=== PATIENT | female | born 1935 | race Caucasian/White ===

== ENCOUNTER 2023-09-04 07:48 | Inpatient (IN) | payer MEDICARE, SELFPAY ==
[2023-09-02 18:06] VITALS: BP 128/99; BMI 18.0
[2023-09-02 18:09] VITALS: BP 128/99
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
[2023-09-02 18:43] LABS: % Basophils 0.3 % (0-2); % Immature Granulocytes 0.3 % (0-0.5); % Lymphocytes 6.2 % (20.5-51.1); % Monocytes 6.9 % (1.7-9.3); % Neutrophils 86.3 % (42.2-75.2); Absolute Lymphocytes 0.8 10^3/uL (1.2-3.4); Absolute Monocytes 0.9 10^3/uL (0.1-0.6); Absolute Neutrophils 11.2 10^3/uL (1.4-6.5); Hematocrit 45.1 % (37.0-47.0); Hemoglobin 15.5 g/dL (12.0-16.0); Mean Corp Hgb Conc. 34.4 g/dL (33.0-37.0); Mean Corpuscular Hgb 30.9 pg (27.0-31.0); Mean Platelet Volume 10.4 fL (7.4-10.4); Nucleated Red Blood Cells % 0 %; Platelet Count 270 10^3/uL (130-400); Red Blood Cell Count 5.01 10^6/uL (4.20-5.40); Red Cell Dist. Width 13.3 % (11.5-14.5); White Blood Cell Count 12.9 10^3/uL (4.8-10.8)
--- NOTE | 2023-09-02 18:44 | PHANOTE ---
Addendum entered by Bernadine Raman 09/02/23 19:49:
Pt's family arrived with all of pt's medication bottles. Went over medications with pt's daughter and discussed last doses.
Original Note:
Med Rec Note:
Per EMS pt lives with daughter, and daughter doesn't know what medications pt is on. Home med list compiled from Dr Liriano and ECW.
[2023-09-02 19:05] LABS: ALT (SGPT) 25 U/L (0-35); AST (SGOT) 67 U/L (14-36); Albumin 4.9 g/dl (3.5-5.0); Alkaline Phosphatase 103 U/L (38-126); Blood Urea Nitrogen 23 mg/dl (7-17); Calcium 9.9 mg/dl (8.4-10.2); Carbon Dioxide 30 mmol/L (22-30); Chloride 100 mmol/L (98-107); Creatine Phosphokinase 1340 U/L (30-135); Estimated Creatinine Clearance 49 ml/min; Glucose 99 mg/dl (70-99); Potassium 4.3 mmol/L (3.5-5.1); Sodium 138 mmol/L (135-145); Total Bilirubin 1.3 mg/dl (0.2-1.3); Total Protein 8.2 g/dl (6.3-8.2); eGFR > 60.00
[2023-09-02] MEDS: NSS 1000 IV (19:35)
[2023-09-02 19:36] VITALS: BP 155/89
[2023-09-02 20:00] VITALS: BP 158/83
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
[2023-09-02 21:00] VITALS: BP 139/86
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
[2023-09-02 23:38] VITALS: BP 148/77
[2023-09-03] VITALS (9 sets, daily range): BP systolic 101–164; BP diastolic 70–116; BMI 18.2
[2023-09-03] MEDS: NSS 1000 IV ×2 (00:13→16:58)
[2023-09-03] MEDS: DURAGESIC 25 MCG/HR PATCH 1 PATCH TRANSDERM (00:19)
[2023-09-03] MEDS: ATIVAN 0.5 MG IV (00:21)
[2023-09-03] MEDS: NSS (PRESERVATIVE FREE) 0.25 ML IV (00:22)
[2023-09-03] MEDS: COLACE PO (00:22)
[2023-09-03] MEDS: TYLENOL PO ×5 (00:22→17:03)
[2023-09-03] MEDS: LIPITOR PO (00:22)
[2023-09-03] MEDS: SEROQUEL PO (00:22)
[2023-09-03] MEDS: ROXICODONE PO ×2 (00:23→07:25)
[2023-09-03 06:56] LABS: Hematocrit 39.3 % (37.0-47.0); Hemoglobin 13.3 g/dL (12.0-16.0); Mean Corp Hgb Conc. 33.8 g/dL (33.0-37.0); Mean Corpuscular Hgb 30.4 pg (27.0-31.0); Mean Corpuscular Volume 89.7 fL (81.0-99.0); Mean Platelet Volume 10.1 fL (7.4-10.4); Platelet Count 266 10^3/uL (130-400); Red Blood Cell Count 4.38 10^6/uL (4.20-5.40); Red Cell Dist. Width 13.2 % (11.5-14.5)
[2023-09-03 07:21] LABS: ALT (SGPT) 24 U/L (0-35); AST (SGOT) 58 U/L (14-36); Alkaline Phosphatase 96 U/L (38-126); Blood Urea Nitrogen 22 mg/dl (7-17); Calcium 9.1 mg/dl (8.4-10.2); Carbon Dioxide 29 mmol/L (22-30); Chloride 104 mmol/L (98-107); Direct Bilirubin 0.3 mg/dl (0.0-0.4); Estimated Creatinine Clearance 49 ml/min; Glucose 99 mg/dl (70-99); Potassium 3.5 mmol/L (3.5-5.1); Sodium 138 mmol/L (135-145); Total Bilirubin 0.9 mg/dl (0.2-1.3); Total CK 1295 U/L (30-135); Total Protein 6.7 g/dl (6.3-8.2); eGFR > 60.00
[2023-09-03] MEDS: SYNTHROID PO (07:25)
[2023-09-03 09:03] LABS: CKMB 9.9 ng/ml (0.0-2.4)
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
[2023-09-03] MEDS: NAMENDA PO (10:37)
[2023-09-03] MEDS: COZAAR PO (10:37)
[2023-09-03] MEDS: EXELON PO (10:37)
[2023-09-03] MEDS: WELLBUTRIN XL (24 hour extended release) PO (10:38)
[2023-09-03] MEDS: VITAMIN D3 (cholecalciferol) PO (10:38)
[2023-09-03] MEDS: ROXICODONE 10 MG PO ×3 (13:13→22:50)
[2023-09-03] MEDS: TYLENOL 325 MG PO ×3 (13:13→22:50)
[2023-09-03] MEDS: NSS IV (13:42)
--- NOTE | 2023-09-03 14:14 | PTCARENOTE ---
Pt received in bed @ 0700. Drowsy but responded to verbal stimuli. Unable to follow commands. Uncooperative with PO medication administration or attempts to feed breakfast. SaO2 95% on room air. Lungs diminished. Vital signs stable. Incontinent of
urine. Pt cleaned and purewick placed.
--- NOTE | 2023-09-03 14:16 | PTCARENOTE ---
Pt remains only oriented to self. Now agreeable to scheduled medication and lunch. Able to follow simple commands. Awaiting urine for sample.
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
[2023-09-03] MEDS: LOVENOX 40 MG SC (17:03)
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
[2023-09-03] MEDS: COLACE 300 MG PO (21:27)
[2023-09-03] MEDS: TYLENOL 500 MG PO (21:27)
[2023-09-03] MEDS: OSCAL 500 + D 500 MG PO (21:27)
[2023-09-03] MEDS: MELATONIN 10 MG PO (21:27)
[2023-09-03] MEDS: NAMENDA 10 MG PO (21:27)
[2023-09-03] MEDS: LIPITOR 10 MG PO (21:27)
[2023-09-03] MEDS: SEROQUEL 25 MG PO (21:28)
[2023-09-03] MEDS: EXELON 1.5 MG PO (22:50)
[2023-09-04 00:39] VITALS: BP 135/71
[2023-09-04] MEDS: NSS 1000 IV ×3 (01:11→19:55)
[2023-09-04 02:03] LABS: Urine Albumin Trace (Neg - Trace); Urine Bilirubin Negative (Negative); Urine Color Yellow; Urine Glucose Negative (Negative); Urine Ketone Trace (Negative); Urine Leukocyte 2+ (Negative); Urine Nitrite Negative (Negative); Urine Occult Blood 3+ (Negative); Urine Specific Gravity 1.015 (<1.030); Urine Urobilinogen Negative (Neg - 1+)
[2023-09-04 02:09] LABS: Urine Character Cloudy (Clear)
[2023-09-04 03:05] LABS: Urine Bacteria Many (Negative); Urine Squamous Cell >30 /LPF (Few); Urine White Cell >100 /HPF (0-5)
[2023-09-04] MEDS: SYNTHROID PO (06:07)
[2023-09-04] MEDS: TYLENOL PO ×2 (06:07→17:04)
[2023-09-04] MEDS: ROXICODONE PO (06:08)
[2023-09-04 07:32] VITALS: BP 187/86
[2023-09-04 08:12] LABS: Hematocrit 40.1 % (37.0-47.0); Hemoglobin 13.6 g/dL (12.0-16.0); Mean Corp Hgb Conc. 33.9 g/dL (33.0-37.0); Mean Corpuscular Hgb 31.2 pg (27.0-31.0); Mean Platelet Volume 9.7 fL (7.4-10.4); Platelet Count 229 10^3/uL (130-400); Red Blood Cell Count 4.36 10^6/uL (4.20-5.40); White Blood Cell Count 5.6 10^3/uL (4.8-10.8)
[2023-09-04 08:52] LABS: ALT (SGPT) 28 U/L (0-35); AST (SGOT) 49 U/L (14-36); Albumin 3.7 g/dl (3.5-5.0); Alkaline Phosphatase 87 U/L (38-126); Blood Urea Nitrogen 13 mg/dl (7-17); Carbon Dioxide 31 mmol/L (22-30); Chloride 106 mmol/L (98-107); Estimated Creatinine Clearance 49 ml/min; Glucose 91 mg/dl (70-99); Potassium 3.2 mmol/L (3.5-5.1); Sodium 139 mmol/L (135-145); Total Bilirubin 0.6 mg/dl (0.2-1.3); Total CK 670 U/L (30-135); Total Protein 6.3 g/dl (6.3-8.2); eGFR > 60.00
[2023-09-04] MEDS: STERILE WATER FOR INJECTION 10 ML IV (09:02)
[2023-09-04] MEDS: ROCEPHIN 1000 MG IV (09:02)
[2023-09-04] MEDS: VITAMIN D3 (cholecalciferol) 50 MCG PO (09:03)
[2023-09-04] MEDS: EXELON 1.5 MG PO ×2 (09:03→19:55)
[2023-09-04] MEDS: NAMENDA 10 MG PO ×2 (09:03→19:55)
[2023-09-04] MEDS: WELLBUTRIN XL (24 hour extended release) 150 MG PO (09:03)
[2023-09-04] MEDS: COZAAR 50 MG PO (09:03)
[2023-09-04] MEDS: TYLENOL 500 MG PO ×2 (09:03→22:10)
[2023-09-04 10:11] LABS: CKMB 6.4 ng/ml (0.0-2.4)
--- NOTE | 2023-09-04 10:37 | PTOTSP ---
ST Acute Care Evaluation
Pt presents with oropharyngeal and esophageal phases that appear WFL for all PO intake. No skilled dysphagia services warranted at this time.
Briefly, pt presents pleasantly confused with moderately-severe cognitive linguistic dysfunction - full assessment NOT completed. Pt is likely at baseline cognitive function, and thus cognitive linguistic evaluation would not be warranted. However,
if pt's family (i.e., daughter) communicates that pt is more altered than normal, please re-consult [employer] services for a cognitive linguistic evaluation. Thank you.
[2023-09-04 11:15] VITALS: BP 142/72
[2023-09-04] MEDS: TYLENOL 325 MG PO ×3 (11:53→23:21)
[2023-09-04] MEDS: ROXICODONE 10 MG PO ×3 (11:53→23:20)
[2023-09-04 15:09] VITALS: BP 156/85
--- NOTE | 2023-09-04 15:25 | W.PN.HOSP.TC ---
Today's Communication/Plan
-
Improving with IV fluids
Speech therapy
Continue antibiotics
Assessment / Plan
Assessment / Plan
Physical Exam
Gen: Elderly appearing. Frail. No acute distress.
HEENT: Not in acute distress
Cardio: +S1/S2, No M/R/G
Pulm: CTA b/l, no w/r/r
GI: Soft/NT/ND, +BS
Skin: Warm/Dry. +mild erythema to left greater troch and b/l knees. Chronic left anterior tibial ecchymosis.
Neuro/MSK: AAOx1 (baseline). MSK 4/5 throughout. Sensation intact throughout. No focal deficits.
Psych: Pleasantly Demented
A/P
Traumatic Rhabdomyolysis
- CPK 1340 --> now improving with IV fluids.
- Renal function has improved.
- Serial exams of left greater troch/right knee, no evidence of infection/compartment at this time
- S/P 1LNS in ER. Continue IVF and trend CPK.
S/P Fall
- Unclear etiology for fall. Suspect physical deconditioning/mechanical etiology.
- CT brain (-).
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
- XR Right knee: no acute fx/dislocation.
- UA suggests UTI: continue Rocephin
- Check orthostatics, Continue IVF
- Consult PT and CM
Leukocytosis
- WBC 12.9K. Afebrile.
- Previous admission 04/2022 for klebsiella UTI.
- Follow urine and blood cultures
- Continue Rocephin
- No pulmonary compaints. CXR with no acute process.
Transaminitis
- Mild transaminitis consistent with rhabdo. IVF and trend.
HTN/HLD
- BP stable. Continue home Losartan.
Hypothyroidism - Continue home synthroid
Dementia/Anxiety/Depression/Chronic Pain
- Continue home wellbutrin, seroquel, rivastigmine, fentanyl patch, and percocet.
- [place]-PD[place] reviewed. Outpatient follow up with Pain management Dr. Wyatt
Diet - Regular Diet
DVT PPx - Lovenox
Code Status - DNR/DNI
On September 03, 2023, I tried calling patient's daughter Yanni Lynch, but she did not answer the phone.
Anticipated Discharge: 24 - 48 hours
Subjective/Interval History
-
Date of Service: September 04, 2023
Patient was seen and examined. She was more alert and interactive today, denied any complaints except for very mild abdominal discomfort which went away.
Objective Data
-
Labs:
Laboratory Results
09/04/23
07:57
WBC 5.6
Hgb 13.6
Hct 40.1
Plt Count 229
Sodium 139
Potassium 3.2 L
Chloride 106
Carbon Dioxide 31 H
BUN 13
Creatinine 0.6
Glucose 91
Calcium 9.0
Total Bilirubin 0.6
AST 49 H
ALT 28
Alkaline Phosphatase 87
Vital Signs:
Vital Signs
Temp Pulse Resp BP Pulse Ox
98.2 F 79 18 156/85 97
09/04/23 15:09 09/04/23 15:09 09/04/23 15:09 09/04/23 15:09 09/04/23 15:09
I&O
09/03/23 09/04/23 09/05/23
06:59 06:59 06:59
Intake Total 1740 / 1740
Output Total 100 / 100
Balance 1640 / 1640
[2023-09-04 15:38] VITALS: BMI 18.2
[2023-09-04 16:10] LABS: Lactic Acid 1.3 mmol/L (0.7-2.0)
[2023-09-04 16:36] VITALS: BP 121/81; BP 125/87; PULSE 109; PULSE 89
[2023-09-04] MEDS: KCL 40 MEQ PO (17:06)
[2023-09-04] MEDS: LOVENOX 40 MG SC (17:06)
[2023-09-04] MEDS: COLACE 300 MG PO (22:10)
[2023-09-04] MEDS: OSCAL 500 + D 500 MG PO (22:10)
[2023-09-04] MEDS: DURAGESIC 25 MCG/HR PATCH 1 PATCH TRANSDERM (22:10)
[2023-09-04] MEDS: SEROQUEL 25 MG PO (22:10)
[2023-09-04] MEDS: LIPITOR 10 MG PO (22:10)
[2023-09-04] MEDS: MELATONIN 10 MG PO (22:10)
--- NOTE | 2023-09-04 22:46 | PTCARENOTE ---
Fentanyl patch removed from L scapula and wasted. Witness by Thelma Page RN.
[2023-09-04 23:30] VITALS: BP 179/94
[2023-09-05] MEDS: NSS 1000 IV ×2 (05:47→17:26)
[2023-09-05] MEDS: SYNTHROID 50 MCG PO (05:52)
[2023-09-05] MEDS: TYLENOL 325 MG PO ×4 (05:52→23:24)
[2023-09-05] MEDS: ROXICODONE 10 MG PO ×4 (05:52→23:24)
[2023-09-05 06:51] LABS: Hematocrit 37.4 % (37.0-47.0); Hemoglobin 12.7 g/dL (12.0-16.0); Mean Corpuscular Hgb 31.1 pg (27.0-31.0); Mean Corpuscular Volume 91.4 fL (81.0-99.0); Mean Platelet Volume 10.5 fL (7.4-10.4); Platelet Count 241 10^3/uL (130-400); Red Blood Cell Count 4.09 10^6/uL (4.20-5.40); White Blood Cell Count 5.2 10^3/uL (4.8-10.8)
[2023-09-05 07:26] LABS: ALT (SGPT) 26 U/L (0-35); AST (SGOT) 38 U/L (14-36); Albumin 3.7 g/dl (3.5-5.0); Alkaline Phosphatase 74 U/L (38-126); Blood Urea Nitrogen 10 mg/dl (7-17); Calcium 9.3 mg/dl (8.4-10.2); Carbon Dioxide 27 mmol/L (22-30); Chloride 106 mmol/L (98-107); Estimated Creatinine Clearance 49 ml/min; Glucose 117 mg/dl (70-99); Potassium 3.8 mmol/L (3.5-5.1); Sodium 137 mmol/L (135-145); Total Bilirubin 0.5 mg/dl (0.2-1.3); Total CK 401 U/L (30-135); Total Protein 6.2 g/dl (6.3-8.2); eGFR > 60.00
[2023-09-05] MEDS: WELLBUTRIN XL (24 hour extended release) 150 MG PO (07:36)
[2023-09-05] MEDS: STERILE WATER FOR INJECTION 10 ML IV (07:36)
[2023-09-05] MEDS: ROCEPHIN 1000 MG IV (07:36)
[2023-09-05] MEDS: EXELON 1.5 MG PO ×2 (07:36→19:38)
[2023-09-05] MEDS: COZAAR 50 MG PO (07:36)
[2023-09-05] MEDS: NAMENDA 10 MG PO ×2 (07:36→19:38)
[2023-09-05] MEDS: VITAMIN D3 (cholecalciferol) 50 MCG PO (07:36)
[2023-09-05] MEDS: TYLENOL 500 MG PO ×2 (07:36→21:13)
[2023-09-05 07:52] VITALS: BP 148/76
[2023-09-05 08:00] LABS: CKMB 4.3 ng/ml (0.0-2.4)
[2023-09-05 11:25] VITALS: BP 150/95
--- NOTE | 2023-09-05 11:44 | PN.CDI ---
CDI
- -
CDI:
Physician Documentation Request
Admit Date: 09/04/23 07:48
Dear Doctor Jen,
Clinical Indicators:
Height: 5 ft 4 in
Weight: 106 lbs 1.6 oz
BMI: 18.2
09/03 note, 'underweight'
If possible, please provide an associated diagnosis related to the abnormal BMI (< or = to 19), such as:
Underweight
BMI is not significant
Other, please specify
Use of terms such as suspected, likely, concern for, or probable (associated with a specific diagnosis that is being evaluated, monitored, or treated as if it exists) are acceptable and can be coded in the inpatient setting, when documented at the
time of discharge.
Thank you,
ASH Fonseca RN
CDI Specialist
available via tiger text
Please use your independent medical judgment in providing your response.
--- NOTE | 2023-09-05 11:48 | PN.CDI ---
CDI
- -
CDI:
Physician Documentation Request
Admit Date: 09/04/23 07:48
Dear Doctor Jen,
Clinical Indicators:
Patient admitted with traumatic rhabdomyolysis.
KCl 40 meq po x 1.
Potassium level:
09/04/23
07:57
Potassium 3.2 L
Based on the above, could you clarify in the progress notes, the appropriate diagnosis, if significant, that supports the above abnormalities and additional evaluation, monitoring and/or treatment rendered:
Hypokalemia
Abnormal lab value, clinically insignificant
Other, please specify
Use of terms such as suspected, likely, concern for, or probable (associated with a specific diagnosis that is being evaluated, monitored, or treated as if it exists) are acceptable and can be coded in the inpatient setting, when documented at the
time of discharge.
Thank you,
ASH Fonseca RN
CDI Specialist
available via tiger text
Please use your independent medical judgment in providing your response.
--- NOTE | 2023-09-05 14:43 | CM ---
Addendum entered by RALEIGH Chapman 09/05/23 15:22:
Referrals faxed
Original Note:
Placed a call to patient's daughter, Yanni, to discuss discharge planning. She stated that she would like for patient to transfer to a SNF and possibly intermediate accountant as she is unable to accommodate the scope of her care. She selected the following
facilities: [facility], [facility], [facility], [facility], [facility], [facility], and [facility].
Will make referrals.
Plan: Case mangement will continue to follow and assist with discharge planning. SNF when stable.
[2023-09-05 16:21] VITALS: BP 166/113
[2023-09-05] MEDS: LOVENOX 40 MG SC (17:11)
--- NOTE | 2023-09-05 17:19 | W.PN.HOSP.TC ---
Today's Communication/Plan
-
Placement pending, spoke extensively to daughter regarding dispo
SNF referrals placed
Echo okay
Continue to monitor on tele
Continue Rocephin, follow cultures
Assessment / Plan
Assessment / Plan
Physical Exam
Gen: Elderly appearing. Frail. No acute distress.
HEENT: Not in acute distress
Cardio: +S1/S2, No M/R/G
Pulm: CTA b/l, no w/r/r
GI: Soft/NT/ND, +BS
Skin: Warm/Dry.
Neuro/MSK: AAOx1 (baseline). MSK 4/5 throughout. Sensation intact throughout. No focal deficits.
Psych: Pleasantly Demented
A/P
Traumatic Rhabdomyolysis
- CPK 1340 --> now improving with IV fluids.
- Renal function has improved.
- Serial exams of left greater troch/right knee, no evidence of infection/compartment at this time
- S/P 1LNS in ER. Continue IVF and trend CPK.
Status Post Fall
- Unclear etiology for fall. Suspect physical deconditioning/mechanical etiology.
- CT brain (-).
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
- XR Right knee: no acute fx/dislocation.
- UA suggests UTI: continue Rocephin
- Check orthostatics, Continue IVF
- Echo stable from previous
- Consult PT and CM
- Monitor on tele
Concern for UTI
-Follow cultures
-Continue Rocephin
Hypokalemia
-Resolved
-Monitor BMP
Leukocytosis
- WBC 12.9K. Afebrile.
- Previous admission 04/2022 for klebsiella UTI.
- Follow urine and blood cultures
- Continue Rocephin
- No pulmonary compaints. CXR with no acute process.
Transaminitis - IMPROVING
- Mild transaminitis consistent with rhabdo. IVF and trend.
HTN/HLD
- BP stable. Continue home Losartan.
Hypothyroidism - Continue home synthroid
Dementia/Anxiety/Depression/Chronic Pain
- Continue home wellbutrin, seroquel, rivastigmine, fentanyl patch, and percocet.
- [place] reviewed. Outpatient follow up with Pain management Dr. Wyatt
Agitation
-Nonviolent bilateral wrist restraints ordered
Underweight
Diet - Regular Diet
DVT PPx - Lovenox
Code Status - DNR/DNI
On September 03, 2023, I tried calling patient's daughter Yanni Lynch, but she did not answer the phone.
On September 05, 2023, I called patient's daughter Yanni Lynch, and extensively spoke to her regarding plan going forward, all questions and concerns were answered to satisfaction.
Total time spent today on chart review, seeing and examining the patient, speaking to the patient's daughter, reviewing orders and on documentation was 55 minutes.
Anticipated Discharge: 24 - 48 hours
Subjective/Interval History
-
Date of Service: September 05, 2023
Objective Data
-
Labs:
Laboratory Results
09/05/23
06:18
WBC 5.2
Hgb 12.7
Hct 37.4
Plt Count 241
Sodium 137
Potassium 3.8
Chloride 106
Carbon Dioxide 27
BUN 10
Creatinine 0.5 L
Glucose 117 H
Calcium 9.3
Total Bilirubin 0.5
AST 38 H
ALT 26
Alkaline Phosphatase 74
Vital Signs:
Vital Signs
Temp Pulse Resp BP Pulse Ox
98.3 F 91 17 166/113 97
09/05/23 16:21 09/05/23 16:21 09/05/23 16:21 09/05/23 16:21 09/05/23 16:21
I&O
09/04/23 09/05/23 09/06/23
06:59 06:59 06:59
Intake Total 1740 / 1740 1480 / 1480 310 / 310
Output Total 100 / 100
Balance 1640 / 1640 1480 / 1480 310 / 310
[2023-09-05] MEDS: NSS IV (17:20)
[2023-09-05] MEDS: TYLENOL PO (17:21)
[2023-09-05 19:17] VITALS: BP 183/92
[2023-09-05] MEDS: LIPITOR 10 MG PO (21:13)
[2023-09-05] MEDS: OSCAL 500 + D 500 MG PO (21:13)
[2023-09-05] MEDS: COLACE 300 MG PO (21:13)
[2023-09-05] MEDS: MELATONIN 10 MG PO (21:13)
[2023-09-05] MEDS: SEROQUEL 25 MG PO (21:13)
[2023-09-05 23:40] VITALS: BP 167/93
[2023-09-06] MEDS: NSS 1000 IV ×2 (01:07→13:04)
[2023-09-06 05:00] VITALS: BP 176/87
[2023-09-06] MEDS: SYNTHROID 50 MCG PO (05:08)
[2023-09-06] MEDS: ROXICODONE 10 MG PO ×4 (05:08→23:08)
[2023-09-06] MEDS: TYLENOL 325 MG PO ×4 (05:08→23:08)
[2023-09-06 07:00] VITALS: BP 149/104
[2023-09-06] MEDS: VITAMIN D3 (cholecalciferol) 50 MCG PO (09:16)
[2023-09-06] MEDS: COZAAR 50 MG PO (09:16)
[2023-09-06] MEDS: NAMENDA 10 MG PO ×2 (09:16→20:28)
[2023-09-06] MEDS: WELLBUTRIN XL (24 hour extended release) 150 MG PO (09:16)
[2023-09-06] MEDS: EXELON 1.5 MG PO ×2 (09:16→20:28)
[2023-09-06] MEDS: ROCEPHIN 1000 MG IV (09:17)
[2023-09-06] MEDS: STERILE WATER FOR INJECTION 10 ML IV (09:17)
[2023-09-06] MEDS: TYLENOL 500 MG PO (09:19)
[2023-09-06 09:22] LABS: Hematocrit 42.1 % (37.0-47.0); Mean Corp Hgb Conc. 33.3 g/dL (33.0-37.0); Mean Corpuscular Hgb 30.9 pg (27.0-31.0); Mean Corpuscular Volume 92.9 fL (81.0-99.0); Mean Platelet Volume 10.7 fL (7.4-10.4); Platelet Count 242 10^3/uL (130-400); Red Blood Cell Count 4.53 10^6/uL (4.20-5.40); Red Cell Dist. Width 13.2 % (11.5-14.5); White Blood Cell Count 4.7 10^3/uL (4.8-10.8)
[2023-09-06 10:49] LABS: ALT (SGPT) 28 U/L (0-35); AST (SGOT) 40 U/L (14-36); Albumin 4.1 g/dl (3.5-5.0); Alkaline Phosphatase 68 U/L (38-126); Blood Urea Nitrogen 9 mg/dl (7-17); Calcium 9.9 mg/dl (8.4-10.2); Carbon Dioxide 28 mmol/L (22-30); Chloride 103 mmol/L (98-107); Estimated Creatinine Clearance 49 ml/min; Glucose 86 mg/dl (70-99); Sodium 138 mmol/L (135-145); Total Bilirubin 0.7 mg/dl (0.2-1.3); Total Protein 6.8 g/dl (6.3-8.2); eGFR > 60.00
[2023-09-06 11:00] VITALS: BP 175/94
[2023-09-06 15:00] VITALS: BP 139/87
--- NOTE | 2023-09-06 16:14 | CM ---
Sent updated clinicals; PT/OT notes to SNFs via [facility]; [facility] denied referral; [facility] and [facility]
[2023-09-06] MEDS: TYLENOL PO ×2 (17:58→23:09)
[2023-09-06] MEDS: LOVENOX 40 MG SC (18:22)
--- NOTE | 2023-09-06 18:23 | W.PN.HOSP.TC ---
Today's Communication/Plan
-
Placement
Antibiotics
Assessment / Plan
Assessment / Plan
Physical Exam
Gen: Elderly appearing. Frail. No acute distress.
HEENT: Not in acute distress
Cardio: +S1/S2, No M/R/G
Pulm: CTA b/l, no w/r/r
GI: Soft/NT/ND, +BS
Skin: Warm/Dry.
Neuro/MSK: AAOx1 (baseline). MSK 4/5 throughout. Sensation intact throughout. No focal deficits.
Psych: Pleasantly Demented
A/P
Traumatic Rhabdomyolysis
- CPK 1340 --> now improving with IV fluids.
- Renal function has improved.
- Serial exams of left greater troch/right knee, no evidence of infection/compartment at this time
- S/P 1LNS in ER. Continue IVF and trend CPK.
Status Post Fall
- Unclear etiology for fall. Suspect physical deconditioning/mechanical etiology.
- CT brain (-).
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
- XR Right knee: no acute fx/dislocation.
- UA suggests UTI
- Urine culture grew Klebsiella aerogenes
- Switch to Bactrim based on sensitivities -- will ask ID about the best option
- Check orthostatics, Continue IVF
- Echo stable from previous
- Consult PT and CM
- Monitor on tele
Concern for UTI
-Follow cultures
-Status post Rocephin
- Continue Bactrim
Hypokalemia
-Resolved
-Monitor BMP
Leukocytosis
- WBC 12.9K. Afebrile.
- Previous admission 04/2022 for klebsiella UTI.
- Urine culture noted.
- Blood cultures with no growth to date.
- Continue antibiotics.
- No pulmonary compaints. CXR with no acute process.
Transaminitis - IMPROVING
- Mild transaminitis consistent with rhabdo. IVF and trend.
HTN/HLD
- BP stable. HOLD LOSARTAN WHILE ON BACTRIM.
- Will substitute with Amlodipine for now
Hypothyroidism - Continue home synthroid
Dementia/Anxiety/Depression/Chronic Pain
- Continue home wellbutrin, seroquel, rivastigmine, fentanyl patch, and percocet.
- [place]. Outpatient follow up with Pain management Dr. Wyatt
Agitation
-Nonviolent bilateral wrist restraints ordered
Underweight
Diet - Regular Diet
DVT PPx - Lovenox
Code Status - DNR/DNI
On September 03, 2023, I tried calling patient's daughter Yanni Lynch, but she did not answer the phone.
On September 05, 2023, I called patient's daughter Yanni Lynch, and extensively spoke to her regarding plan going forward, all questions and concerns were answered to satisfaction.
Anticipated Discharge: 24 - 48 hours
Subjective/Interval History
-
Date of Service: September 06, 2023
Patient was seen and examined. She reported no new symptoms or complaints.
Objective Data
-
Labs:
Laboratory Results
09/06/23
08:47
WBC 4.7 L
Hgb 14.0
Hct 42.1
Plt Count 242
Sodium 138
Potassium 4.0
Chloride 103
Carbon Dioxide 28
BUN 9
Creatinine 0.5 L
Glucose 86
Calcium 9.9
Total Bilirubin 0.7
AST 40 H
ALT 28
Alkaline Phosphatase 68
Vital Signs:
Vital Signs
Temp Pulse Resp BP Pulse Ox
98.1 F 99 18 139/87 93
09/06/23 15:00 09/06/23 15:00 09/06/23 15:00 09/06/23 15:00 09/06/23 15:00
I&O
09/05/23 09/06/23 09/07/23
06:59 06:59 06:59
Intake Total 1480 / 1480 310 / 310
Balance 1480 / 1480 310 / 310
[2023-09-06 19:48] VITALS: BP 174/94
[2023-09-06] MEDS: OSCAL 500 + D 500 MG PO (23:03)
[2023-09-06] MEDS: COLACE 300 MG PO (23:03)
[2023-09-06] MEDS: LIPITOR 10 MG PO (23:03)
[2023-09-06] MEDS: SEROQUEL 25 MG PO (23:03)
[2023-09-06] MEDS: MELATONIN 10 MG PO (23:04)
[2023-09-06] MEDS: DURAGESIC 25 MCG/HR PATCH 1 PATCH TRANSDERM (23:04)
[2023-09-06 23:44] VITALS: BP 197/100
[2023-09-06] MEDS: APRESOLINE 5 MG IV (23:45)
[2023-09-07] VITALS (8 sets, daily range): BP systolic 114–179; BP diastolic 67–95; PULSE 89; O2SAT 97
[2023-09-07] MEDS: ROXICODONE 10 MG PO ×3 (06:04→17:02)
[2023-09-07] MEDS: SYNTHROID 50 MCG PO (06:04)
[2023-09-07] MEDS: TYLENOL 325 MG PO ×3 (06:04→17:02)
[2023-09-07 08:17] LABS: Hematocrit 36.1 % (37.0-47.0); Hemoglobin 12.3 g/dL (12.0-16.0); Mean Corp Hgb Conc. 34.1 g/dL (33.0-37.0); Mean Corpuscular Hgb 30.2 pg (27.0-31.0); Mean Corpuscular Volume 88.7 fL (81.0-99.0); Mean Platelet Volume 9.9 fL (7.4-10.4); Platelet Count 275 10^3/uL (130-400); Red Blood Cell Count 4.07 10^6/uL (4.20-5.40); White Blood Cell Count 5.7 10^3/uL (4.8-10.8)
--- NOTE | 2023-09-07 08:27 | W.PN.HOSP.TC ---
Today's Communication/Plan
-
SVT today -- appreciate cardiology -- beta ambrosio added
Had a bowel movement after bowel regimen today
Placement, PT/OT
Continue to monitor on telemetry
Assessment / Plan
Assessment / Plan
Physical Exam
Gen: Elderly appearing. Frail. No acute distress.
HEENT: Not in acute distress
Cardio: +S1/S2, No M/R/G
Pulm: CTA b/l, no w/r/r
GI: Soft/ND, +BS. Tender on exam but tenderness resolved after bowel movement following bowel regimen.
Skin: Warm/Dry.
Neuro/MSK: AAOx1 (baseline). MSK 4/5 throughout. Sensation intact throughout. No focal deficits.
Psych: Pleasantly Demented
Assessment/Plan
Traumatic Rhabdomyolysis - RESOLVED
- CPK 1340 --> now improving with IV fluids.
- Renal function has improved.
- Serial exams of left greater troch/right knee, no evidence of infection/compartment at this time
- S/P 1LNS in ER and additional IV fluids.
Status Post Fall Possibly Related to Supraventricular Tachycardia (because Supraventricular Tachycardia witnessed in hospital on 09/07/23 morning -- SEE BELOW)
- Unclear etiology for fall. Suspect physical deconditioning/mechanical etiology.
- CT brain (-).
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
- XR Right knee: no acute fx/dislocation.
- UA suggests UTI
- Urine culture grew Klebsiella aerogenes
- Switched to Bactrim based on sensitivities -- continue
- Follow orthostatics, Continue IVF
- Echo stable from previous
- Consult PT and CM
- Monitor on tele
Supraventricular tachycardia on September 07, 2023
-Cardiology consulted, recommendations appreciated
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
-Echo from 09/05/2023 showed LVEF 60%. Moderate LVH. Mild MR; Normal PA pressure
-Start Metoprolol
-Stop Amlodipine and Losartan as per cardiology
Constipation
Moderate Colonic Stool Sanborn on September 04, 2023 Abdominal X-Ray
-Senokot-S: 1 tablet BID and Miralax 17 grams PO daily, Dulcolax suppository
-Above regimen finally resulted in a bowel movement on September 07, 2023 morning
-When patient starts having bowel movements but if she has cramps, can discontinue Senokot
Concern for UTI
-Follow cultures
-Status post Rocephin
-Continue Bactrim
Hypokalemia
-Resolved
-Monitor BMP
Leukocytosis
- WBC was 12.9K. Afebrile.
- Previous admission 04/2022 for klebsiella UTI.
- Urine culture noted.
- Blood cultures with no growth to date.
- Continue antibiotics.
- No pulmonary complaints. CXR with no acute process.
Transaminitis - RESOLVED
- Mild transaminitis consistent with rhabdo
HTN/HLD
- BP stable. HOLD LOSARTAN WHILE ON BACTRIM (Losartan actually stopped anyway by cardiology given SVT--as above)
- Metoprolol as above
Hypothyroidism - Continue home synthroid
Dementia/Anxiety/Depression/Chronic Pain
- Continue home wellbutrin, seroquel, rivastigmine, fentanyl patch, and percocet.
- [place] was previously reviewed. Outpatient follow up with Pain management Dr. Wyatt
Agitation
-Nonviolent bilateral wrist restraints ordered
Underweight
Diet - Regular Diet
DVT PPx - Lovenox
Code Status - DNR/DNI
On September 03, 2023, I tried calling patient's daughter Yanni September, but she did not answer the phone.
On September 05, 2023, I called patient's daughter Yanni Lynch, and extensively spoke to her regarding plan going forward, all questions and concerns were answered to satisfaction.
Total time spent today on chart review, seeing and examining the patient, evaluating patient's supraventricular tachycardia, monitoring for bowel movement, speaking with patient's nurse, speaking with senior geologist and reviewing and placing orders
was 60 minutes.
Anticipated Discharge: 24 - 48 hours
Subjective/Interval History
-
Date of Service: September 07, 2023
Patient was seen and examined. She had a difficult time describing her symptoms due to confusion, but she had abdominal tenderness which was relieved with a bowel movement.
Objective Data
-
Labs:
Laboratory Results
09/07/23
07:51
WBC Pending
Hgb Pending
Hct Pending
Plt Count Pending
Sodium Pending
Potassium Pending
Chloride Pending
Carbon Dioxide Pending
BUN Pending
Creatinine Pending
Glucose Pending
Calcium Pending
Total Bilirubin Pending
AST Pending
ALT Pending
Alkaline Phosphatase Pending
Vital Signs:
Vital Signs
Temp Pulse Resp BP Pulse Ox
97.4 F 74 16 179/83 96
09/07/23 07:52 09/07/23 07:52 09/07/23 07:52 09/07/23 07:52 09/07/23 07:52
I&O
09/06/23 09/07/23 09/08/23
06:59 06:59 06:59
Intake Total 310 / 310 240 / 240
Balance 310 / 310 240 / 240
[2023-09-07] MEDS: BACTRIM DS 800 MG/160 MG 1 TABLET PO ×2 (09:05→20:44)
[2023-09-07] MEDS: EXELON 1.5 MG PO ×2 (09:05→20:43)
[2023-09-07] MEDS: NAMENDA 10 MG PO ×2 (09:05→20:44)
[2023-09-07] MEDS: WELLBUTRIN XL (24 hour extended release) 150 MG PO (09:05)
[2023-09-07] MEDS: NORVASC 2.5 MG PO (09:05)
[2023-09-07] MEDS: VITAMIN D3 (cholecalciferol) 50 MCG PO (09:05)
[2023-09-07] MEDS: TYLENOL 500 MG PO ×3 (09:06→20:44)
[2023-09-07] MEDS: MIRALAX 17 GRAMS PO (09:09)
[2023-09-07] MEDS: DULCOLAX 10 MG RECTAL (09:09)
[2023-09-07] MEDS: SENOKOT-S 1 TABLET PO ×2 (09:09→20:44)
[2023-09-07 09:21] LABS: ALT (SGPT) 32 U/L (0-35); AST (SGOT) 31 U/L (14-36); Albumin 3.5 g/dl (3.5-5.0); Alkaline Phosphatase 68 U/L (38-126); Blood Urea Nitrogen 13 mg/dl (7-17); Calcium 10.1 mg/dl (8.4-10.2); Carbon Dioxide 34 mmol/L (22-30); Chloride 101 mmol/L (98-107); Creatine Phosphokinase 135 U/L (30-135); Estimated Creatinine Clearance 49 ml/min; Glucose 100 mg/dl (70-99); Potassium 3.7 mmol/L (3.5-5.1); Sodium 137 mmol/L (135-145); Total Bilirubin 0.4 mg/dl (0.2-1.3); eGFR > 60.00
[2023-09-07 10:41] LABS: % Basophils 0.9 % (0-2); % Eosinophils 3.2 % (0-6); % Immature Granulocytes 0.5 % (0-0.5); % Lymphocytes 27.8 % (20.5-51.1); % Monocytes 8.8 % (1.7-9.3); % Neutrophils 58.8 % (42.2-75.2); Absolute Basophils 0.1 10^3/uL (0-0.2); Absolute Eosinophils 0.3 10^3/uL (0-0.7); Absolute Lymphocytes 2.3 10^3/uL (1.2-3.4); Absolute Monocytes 0.7 10^3/uL (0.1-0.6); Absolute Neutrophils 4.8 10^3/uL (1.4-6.5); Hematocrit 40.2 % (37.0-47.0); Hemoglobin 14.1 g/dL (12.0-16.0); Mean Corp Hgb Conc. 35.1 g/dL (33.0-37.0); Mean Corpuscular Volume 88.4 fL (81.0-99.0); Mean Platelet Volume 9.8 fL (7.4-10.4); Nucleated Red Blood Cells % 0 %; Platelet Count 367 10^3/uL (130-400); Red Blood Cell Count 4.55 10^6/uL (4.20-5.40); Red Cell Dist. Width 13.2 % (11.5-14.5); White Blood Cell Count 8.2 10^3/uL (4.8-10.8)
--- NOTE | 2023-09-07 10:45 | PTCARENOTE ---
contacted attending d/t concerning change in rhythm . pt c/o heart racing, denies pain. pt had received suppository & bowel regimen and worked with PT but otherwise uneventful AM. EKG vs obtained. concern d/t junctional rhythm. cardiology consult
and stat labs. Pt labs obtained, cardiology at bedside. CXR obtained. pt incont large BM. hygiene provided and CB in reach.
[2023-09-07 10:46] LABS: Lactic Acid 2.2 mmol/L (0.7-2.0)
[2023-09-07 10:54] LABS: ALT (SGPT) 34 U/L (0-35); AST (SGOT) 34 U/L (14-36); Albumin 4.1 g/dl (3.5-5.0); Alkaline Phosphatase 71 U/L (38-126); Blood Urea Nitrogen 14 mg/dl (7-17); Calcium 10.5 mg/dl (8.4-10.2); Carbon Dioxide 32 mmol/L (22-30); Chloride 100 mmol/L (98-107); Estimated Creatinine Clearance 49 ml/min; Glucose 105 mg/dl (70-99); Magnesium 1.7 mg/dl (1.6-2.3); Potassium 3.9 mmol/L (3.5-5.1); Sodium 137 mmol/L (135-145); Total Bilirubin 0.5 mg/dl (0.2-1.3); Total Protein 6.9 g/dl (6.3-8.2); eGFR > 60.00
[2023-09-07 11:04] LABS: NT-proBNP 753 pg/ml; Troponin I 0.015 ng/ml
--- NOTE | 2023-09-07 12:11 | CON.CAR ---
Consultation
Consultation Request
Date/Time Consultation Requested: 09/07/2023
Date/Time Consultation Performed:
Reason for Consultation: SVT
Medical History
-
Chief Complaint: Status post fall
History of Present Illness:
80-year-old female with history of dementia, hypothyroidism, and hyperlipidemia presents to the emergency department via EMS due to an unwitnessed fall and prolonged downtime. daughter takes care of the patient at home. daughter was in the shower,
when the fall occurred. patient is demented and not able to tell us how the fall occurred. she fell around 1pm yesterday. daughter attempted to get her up, but she couldn't. daughter did not want mom to be in the hospital, because last time she was
delirious and needed restrained in the hospital. She did not want to go through that again. patient is not complaining of any pain.
.
During her stay in the hospital she was treated for rhabdomyolysis, UTI, electrolyte abnormalities. Patient was on losartan but due to Bactrim it was discontinued and switched to amlodipine. Today patient has spontaneous episode of SVT while
walking with the physical therapy. Tachycardia was 140s 150 bpm was transient and dissipated spontaneously without any intervention. While she was resting in her room she had another episode of tachycardia 140s to 150 bpm without any stress and
resting in the bed. EKG was again done by the time EKG was done patient's arrhythmia was dissipated into sinus tachycardia. Telemetry was on and telemetry was reviewed personally. 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
.
Patient herself is agitated and demented with difficult to obtain any history. She denies any chest pain or any symptoms associated with palpitations. 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
rhabdomyolysis.
Past Medical History
Past Medical History: Other (Neuropathy, Chronic insomnia, Anxiety, Depression, Lumbar disc displacement, Hypertension, Hypothyroidism, Chronic pain syndrome, Anemia, Spinal stenosis, Cervical radiculopathy, Hyperlipidemia, Alzheimer's disease/
Dementia)
Social History
Tobacco: Former Smoker
Alcohol: None
Drug: None
Personal: Single
Living: With Family
Family History
Family History: Reviewed & Not Pertinent
Allergies / Home Medications
Allergy/AdvReac Type Severity Reaction Status Date / Time
No Known Allergies Allergy Verified 04/17/22 17:55
�Medication �Instructions �Recorded �Confirmed �Type
atorvastatin 10 mg tablet 10 mg PO HS High cholesterol 03/01/13 09/02/23 History
calcium carbonate 600 mg-vitamin 1 ea PO HS Supplement 03/01/13 09/02/23 History
D3 10 mcg (400 unit) tablet
(Calcium 600 + D(3))
cholecalciferol (vitamin D3) 50 2,000 unit PO DAILY Supplement 08/29/16 09/02/23 History
mcg (2,000 unit) tablet
losartan 50 mg tablet 50 mg PO DAILY Blood pressure 01/16/19 09/02/23 History
fentanyl 25 mcg/hr transdermal 25 mcg transdermal Q48H Pain 01/30/21 09/02/23 History
patch
levothyroxine 50 mcg tablet 50 mcg PO DAILY AT 0700 Thyroid 01/30/21 09/02/23 History
memantine 10 mg tablet 10 mg PO BID dementia 01/31/21 09/02/23 History
rivastigmine tartrate 1.5 mg 1.5 mg PO BID dementia 01/31/21 09/02/23 History
capsule
oxycodone-acetaminophen 10 mg-325 1 tab PO Q6 moderate pain 04/17/22 09/02/23 History
mg tablet
acetaminophen 500 mg tablet 500 mg PO TID Pain 09/02/23 09/02/23 History
bupropion HCl 150 mg 24 hr tablet, 150 mg PO DAILY Mental health 09/02/23 09/02/23 History
extended release
docusate sodium 100 mg capsule 300 mg PO HS Constipation 09/02/23 09/02/23 History
melatonin 10 mg tablet 10 mg PO HS Sleep 09/02/23 09/02/23 History
quetiapine 25 mg tablet 25 mg PO HS mental health 09/02/23 09/02/23 History
Review of Systems
-
Unable to obtain full review of systems at this time due to: Dementia
Physical Exam
Vital Signs
Temp Pulse Resp BP Pulse Ox
98.3 F 113 20 114/86 96
09/07/23 10:15 09/07/23 10:15 09/07/23 10:15 09/07/23 10:15 09/07/23 10:15
Lab Results
09/07/23 10:24
09/07/23 10:24
Troponin I 0.015 ng/ml 09/07/23 10:30
Elz-Q-Tdnnvurvctv Pept 753 pg/ml 09/07/23 10:30
Physical Exam
General: Well Developed, Well Nourished, No Apparent Distress and Comfortable
HEENT: Normocephalic, Anicteric and Moist Mucous Membranes
Respiratory: Crackles and Non Labored Respirations
Cardiac: S1/S2, Regular Rhythm and Murmur
GI: Soft, Non Tender, Non Distended and Normal Bowel Sounds
Musculoskeletal: No Clubbing, No Cyanosis and No Edema
Skin: Warm and Dry
Neuro: Awake and Nonfocal/Grossly Intact
Psych: Agitated
Impression / Plan
-
Supraventricular tachycardia
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
-Echo 09/05/2023: LVEF 60%. Moderate LVH. Mild MR; Normal PA pressure
Status post fall
-Patient's initial presentation with fall and abnormalities was initially thought to be mechanical in nature
-With SVT noted, it is possible patient may have had SVT/persistent arrhythmia related syncope
-Will stop patient's amlodipine and start metoprolol 25 mg twice a day
Hypertension
-Previously on losartan, currently on amlodipine
-With arrhythmia, we will discontinue amlodipine and losartan and started on metoprolol 25 mg twice a day.
Data Reviewed
-
EKG: Tracing Personally Visualized and interpreted
Radiology: Report Reviewed by me
Medical Tests (Nuc Med, Echo etc): Image Personally Visualized and interpreted and Report Reviewed by me
Labs: Labs Reviewed by me, Discussed with Physician, Discussed with Nurse and Discussed with Patient
Old Records: Reviewed
Total Time Spent with Patient (in minutes): 75
[2023-09-07] MEDS: TOPROL XL 25 MG PO ×2 (12:34→20:43)
[2023-09-07] MEDS: APRESOLINE 5 MG IV (14:50)
--- NOTE | 2023-09-07 15:31 | CM ---
OT recommended SNF
PT re-evaluated patient today and recommended SNF
Updated PT notes set to SNF referrals who were interested
[facility] respond to referral
[facility] not have a bed
Daughter is considering LTC; but will not submit financial application until she visits the sites
Plan: discharge to SNF when stable and bed is available; no Auth needed
--- NOTE | 2023-09-07 15:49 | PTOTSP ---
Speech Therapy
Speech signed off on patient on 09/03 on regular consistency solids and thin liquids.
PRINTER MACHINE received speech orders for patient. Per MD, patient's CXR was concerning for possible aspiration.
09/06 CXR: 'IMPRESSION:
1. Interval increase in reticulonodular opacities in the lower lobes of both lungs. Diagnostic possibilities are (1) acute airway aspiration, (2) mild pneumonia, or (3) subsegmental atelectasis/scarring.
2. Severe calcific atherosclerotic plaque and tortuosity in the thoracic aorta.
3. Osteoporosis.'
Presentation: Patient was seen sitting upright in her bed. Patient was pleasant and confused. Patient was partially oriented (self only).
Swallowing Function: PRINTER MACHINE observed patient with several straw sips of thin liquids and bites of regular consistency solids in which patient appeared to tolerate as she did not exhibit any overt clinical s/sx of aspiration. Mild prolonged mastication
of regular consistency solids noted which was adequately manipulated with thin liquid washes.
Given the above information, recommend continuation of current diet (regular consistency solids and thin liquids) with a consideration of a VSE to r/o silent aspiration if suspected.
Plan: PRINTER MACHINE will continue to follow; pending hospitalization.
[2023-09-07] MEDS: LOVENOX 40 MG SC (17:02)
[2023-09-07 17:51] LABS: Troponin I 0.014 ng/ml
[2023-09-07] MEDS: OSCAL 500 + D 500 MG PO (20:43)
[2023-09-07] MEDS: SEROQUEL 25 MG PO (20:44)
[2023-09-07] MEDS: LIPITOR 10 MG PO (20:44)
[2023-09-07] MEDS: MELATONIN 10 MG PO (20:45)
[2023-09-07] MEDS: NSS 1000 IV (20:46)
[2023-09-07 23:29] LABS: Troponin I 0.014 ng/ml
[2023-09-08] VITALS (7 sets, daily range): BP systolic 90–170; BP diastolic 64–102; PULSE 79; O2SAT 93
[2023-09-08] MEDS: TYLENOL 325 MG PO ×3 (00:04→17:21)
[2023-09-08] MEDS: ROXICODONE 10 MG PO ×3 (00:04→17:21)
[2023-09-08 05:52] LABS: % Basophils 0.9 % (0-2); % Eosinophils 5.1 % (0-6); % Immature Granulocytes 0.6 % (0-0.5); % Lymphocytes 27.8 % (20.5-51.1); % Monocytes 11.5 % (1.7-9.3); % Neutrophils 54.1 % (42.2-75.2); Absolute Basophils 0.1 10^3/uL (0-0.2); Absolute Eosinophils 0.4 10^3/uL (0-0.7); Absolute Monocytes 0.8 10^3/uL (0.1-0.6); Absolute Neutrophils 3.8 10^3/uL (1.4-6.5); Hematocrit 34.3 % (37.0-47.0); Hemoglobin 11.7 g/dL (12.0-16.0); Mean Corp Hgb Conc. 34.1 g/dL (33.0-37.0); Mean Corpuscular Hgb 30.6 pg (27.0-31.0); Mean Corpuscular Volume 89.8 fL (81.0-99.0); Mean Platelet Volume 9.8 fL (7.4-10.4); Nucleated Red Blood Cells % 0 %; Platelet Count 297 10^3/uL (130-400); Red Blood Cell Count 3.82 10^6/uL (4.20-5.40); Red Cell Dist. Width 13.3 % (11.5-14.5)
[2023-09-08 06:17] LABS: Troponin I 0.015 ng/ml
[2023-09-08] MEDS: ROXICODONE PO ×3 (06:34→06:46)
[2023-09-08] MEDS: SYNTHROID PO ×2 (06:34→06:45)
[2023-09-08] MEDS: TYLENOL PO ×2 (06:34→06:45)
[2023-09-08 06:40] LABS: ALT (SGPT) 28 U/L (0-35); AST (SGOT) 30 U/L (14-36); Albumin 3.4 g/dl (3.5-5.0); Alkaline Phosphatase 68 U/L (38-126); Blood Urea Nitrogen 13 mg/dl (7-17); Calcium 9.7 mg/dl (8.4-10.2); Carbon Dioxide 26 mmol/L (22-30); Chloride 105 mmol/L (98-107); Estimated Creatinine Clearance 42 ml/min; Glucose 88 mg/dl (70-99); Magnesium 1.8 mg/dl (1.6-2.3); Potassium 3.8 mmol/L (3.5-5.1); Sodium 138 mmol/L (135-145); Total Bilirubin 0.5 mg/dl (0.2-1.3); Total Protein 5.8 g/dl (6.3-8.2); eGFR > 60.00
[2023-09-08] MEDS: TYLENOL 500 MG PO ×3 (08:22→22:10)
[2023-09-08] MEDS: WELLBUTRIN XL (24 hour extended release) 150 MG PO (08:22)
[2023-09-08] MEDS: TOPROL XL 25 MG PO ×2 (08:22→20:31)
[2023-09-08] MEDS: EXELON 1.5 MG PO ×2 (08:22→20:30)
[2023-09-08] MEDS: SENOKOT-S 1 TABLET PO ×2 (08:23→20:30)
[2023-09-08] MEDS: NAMENDA 10 MG PO ×2 (08:23→20:31)
[2023-09-08] MEDS: BACTRIM DS 800 MG/160 MG 1 TABLET PO ×2 (08:23→20:30)
[2023-09-08] MEDS: VITAMIN D3 (cholecalciferol) 50 MCG PO (08:23)
[2023-09-08] MEDS: MIRALAX 17 GRAMS PO (08:24)
--- NOTE | 2023-09-08 08:30 | W.PN.HOSP.TC ---
Today's Communication/Plan
-
see AP
Assessment / Plan
Assessment / Plan
A/P:
# Traumatic Rhabdomyolysis - RESOLVED
CPK 1340 to 135 with IVF.
# Mechanical fall may be related to Supraventricular Tachycardia vs physical deconditioning
CT head No acute intracranial abnormality
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
XR Right knee no acute fx/dislocation.
Echo stable from previous
PT recc SNF
# Possible dysphagia with underlying dementia
Cleared for solid food per SPL eval
Check VSE
# Supraventricular tachycardia on September 07, 2023
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
Echo from 09/05/2023 showed LVEF 60%. Moderate LVH. Mild MR; Normal PA pressure
Start Metoprolol 25 mg BID
Stopped Amlodipine and Losartan as per cardiology
# Constipation, resolved
Cont bowel regimen, Senokot-S 1 tablet BID, Miralax 17 grams PO daily, Dulcolax suppository
# UTI with Klebsiella aerogenes
# Resolved Leukocytosis
s/p Ceftriaxone 3 days, then switched to Bactrim based on sensitivities - continue Bactrim for now
# Hypokalemia, Resolved
# Resolved transaminitis
# HTN
Started Metoprolol 25 mg BID and off Amlodipine and Losartan as stated above
# Hypothyroidism
Continue home synthroid
# Dementia/Anxiety/Depression/Chronic Pain with opiate dependence
# Behavioral disturbance
Pt is awake, not orientated
Continue home wellbutrin, seroquel, rivastigmine, fentanyl patch, and percocet.
[place]. Outpatient follow up with Pain management Dr. Wyatt
Pt has required Nonviolent bilateral wrist restraints ordered
# Underweight
Diet - Regular Diet
DVT PPx - Lovenox SQ
Code Status - DNR/DNI
updated daughter on the phone
total time spent 51 min
Anticipated Discharge: 24 - 48 hours
Subjective/Interval History
-
Date of Service: September 08, 2023
Objective Data
-
Labs:
Laboratory Results
09/08/23
05:40
WBC 7.0
Hgb 11.7 L
Hct 34.3 L
Plt Count 297
Sodium 138
Potassium 3.8
Chloride 105
Carbon Dioxide 26
BUN 13
Creatinine 0.7
Glucose 88
Calcium 9.7
Total Bilirubin 0.5
AST 30
ALT 28
Alkaline Phosphatase 68
Vital Signs:
Vital Signs
Temp Pulse Resp BP Pulse Ox
36.3 C 71 18 151/102 94
09/08/23 07:00 09/08/23 07:00 09/08/23 07:00 09/08/23 07:00 09/08/23 07:00
I&O
09/07/23 09/08/23 09/09/23
06:59 06:59 06:59
Intake Total 240 / 240 1050 / 1050
Balance 240 / 240 1050 / 1050
Review of Systems
-
Unable to obtain full review of systems at this time due to: Dementia
Physical Exam
-
General: Well Developed, No Apparent Distress, Comfortable and Appears Chronically Ill
HEENT: Normocephalic and Atraumatic
Respiratory: Clear to Auscultation and Non Labored Respirations; Negative Accessory Resp Muscle Use
Cardiac: Regular Rhythm and S1/S2
GI: Soft, Nontender and Nondistended
Neuro: Awake
Psych: Calm and Apparent Dementia
Data Reviewed
-
Labs: Labs Reviewed by me
--- NOTE | 2023-09-08 08:53 | W.PN.CD ---
Addendum entered and electronically signed by Casey Sol MD 09/08/23 09:00:
-
-
Given risk of Bactrim and ARB/YAJAIRA-I will resume Amlodipine AND NOT losartan
-
-
Original Note:
Today's Communication / Plan
-
Continue metoprolol
Cardiology will sign off
Restart losartan and hospitalist to adjust HTN meds as needed
Impression / Plan
-
Supraventricular tachycardia
-No recurrence now on metoprolol
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
-Echo 09/05/2023: LVEF 60%. Moderate LVH. Mild MR; Normal PA pressure
Status post fall
-Patient's initial presentation with fall and abnormalities was initially thought to be mechanical in nature
-With SVT noted, it is possible patient may have had SVT/persistent arrhythmia related syncope
-Will stop patient's amlodipine and start metoprolol 25 mg twice a day
Hypertension
-now on metoprolol 25 mg twice a day
-bp up = > resume losartan
- defer BP further BP management to hospitalist
Physical Exam
Vital Signs/Labs
Vital Signs
Temp Pulse Resp BP Pulse Ox
97.4 F 71 18 151/102 94
09/08/23 07:00 09/08/23 07:00 09/08/23 07:00 09/08/23 07:00 09/08/23 07:00
09/08/23 05:40
09/08/23 05:40
Magnesium 1.8 mg/dl (1.6-2.3) 09/08/23 05:40
09/07/23
10:30
Qaz-D-[id number] Pept 753
LAB Results
09/07/23 09/07/23 09/07/23
10:30 16:52 22:57
Troponin I 0.015 0.014 0.014
09/08/23
05:40
Troponin I 0.015
Physical Exam
Constitutional: No acute distress
EENT: Anicteric
Cardiovascular: Rhythm & rate is regular and Pedal edema is absent
Respiratory: Respiratory effort normal and Lungs clear to auscul.
GI: Soft and Distention absent
Neuro/Psych: Alert
Data Reviewed
-
Date of Service: September 08, 2023
[2023-09-08] MEDS: NORVASC 5 MG PO (09:22)
--- NOTE | 2023-09-08 10:30 | PTOTSP ---
Speech Language Pathology
VIDEOFLUOROSCOPIC SWALLOWING EXAMINATION (VSE) completed. Overall, pt with mild oropharyngeal dysphagia. Penetration noted at times with liquids with no aspiration. Only trace pharyngeal residue noted.
Recommend:
(1) Regular solids/thin liquids
(2) Aspiration precautions: sit upright, single sips, no straws, slow rate, intermittent cough/reswallow
(3) Meds whole in puree unless pt able to take with single sip of liquid
(4) PHY THERAPIST to continue to follow
[2023-09-08] MEDS: LOVENOX 40 MG SC (17:21)
[2023-09-08] MEDS: SEROQUEL 25 MG PO (22:10)
[2023-09-08] MEDS: LIPITOR 10 MG PO (22:10)
[2023-09-08] MEDS: MELATONIN 10 MG PO (22:10)
[2023-09-08] MEDS: OSCAL 500 + D 500 MG PO (22:10)
[2023-09-08] MEDS: DURAGESIC 25 MCG/HR PATCH 1 PATCH TRANSDERM (22:58)
[2023-09-09] MEDS: TYLENOL 325 MG PO ×2 (00:18→12:09)
[2023-09-09] MEDS: ROXICODONE 10 MG PO ×2 (00:19→12:09)
[2023-09-09 03:44] VITALS: BP 126/54
[2023-09-09] MEDS: TYLENOL PO ×2 (05:55→06:04)
[2023-09-09] MEDS: SYNTHROID 50 MCG PO (05:56)
[2023-09-09] MEDS: ROXICODONE PO ×2 (05:56→06:03)
[2023-09-09 06:55] LABS: % Basophils 0.8 % (0-2); % Eosinophils 4.5 % (0-6); % Immature Granulocytes 0.8 % (0-0.5); % Lymphocytes 22.9 % (20.5-51.1); % Monocytes 11.7 % (1.7-9.3); % Neutrophils 59.3 % (42.2-75.2); Absolute Basophils 0.1 10^3/uL (0-0.2); Absolute Eosinophils 0.3 10^3/uL (0-0.7); Absolute Immature Granulocytes 0.1 10^3/uL (0-0.05); Absolute Lymphocytes 1.6 10^3/uL (1.2-3.4); Absolute Monocytes 0.8 10^3/uL (0.1-0.6); Absolute Neutrophils 4.2 10^3/uL (1.4-6.5); Hematocrit 36.5 % (37.0-47.0); Hemoglobin 12.2 g/dL (12.0-16.0); Mean Corp Hgb Conc. 33.4 g/dL (33.0-37.0); Mean Corpuscular Hgb 30.9 pg (27.0-31.0); Mean Corpuscular Volume 92.4 fL (81.0-99.0); Nucleated Red Blood Cells % 0 %; Platelet Count 295 10^3/uL (130-400); Red Blood Cell Count 3.95 10^6/uL (4.20-5.40); Red Cell Dist. Width 13.3 % (11.5-14.5); White Blood Cell Count 7.1 10^3/uL (4.8-10.8)
[2023-09-09] MEDS: NORVASC 5 MG PO (07:56)
[2023-09-09 07:57] LABS: ALT (SGPT) 30 U/L (0-35); AST (SGOT) 26 U/L (14-36); Albumin 3.7 g/dl (3.5-5.0); Alkaline Phosphatase 72 U/L (38-126); Blood Urea Nitrogen 19 mg/dl (7-17); Carbon Dioxide 32 mmol/L (22-30); Chloride 104 mmol/L (98-107); Estimated Creatinine Clearance 33 ml/min; Glucose 98 mg/dl (70-99); Potassium 4.1 mmol/L (3.5-5.1); Sodium 136 mmol/L (135-145); Total Bilirubin 0.4 mg/dl (0.2-1.3); Total Protein 6.2 g/dl (6.3-8.2); eGFR > 60.00
[2023-09-09] MEDS: TYLENOL 500 MG PO (07:57)
[2023-09-09] MEDS: WELLBUTRIN XL (24 hour extended release) 150 MG PO (07:57)
[2023-09-09] MEDS: MIRALAX 17 GRAMS PO (07:57)
[2023-09-09] MEDS: BACTRIM DS 800 MG/160 MG 1 TABLET PO (07:57)
[2023-09-09] MEDS: EXELON 1.5 MG PO (07:57)
[2023-09-09] MEDS: VITAMIN D3 (cholecalciferol) 50 MCG PO (07:58)
[2023-09-09] MEDS: TOPROL XL 25 MG PO (07:58)
[2023-09-09] MEDS: SENOKOT-S 1 TABLET PO (07:58)
[2023-09-09] MEDS: NAMENDA 10 MG PO (07:58)
[2023-09-09 08:00] VITALS: BP 175/70
--- NOTE | 2023-09-09 09:27 | W.PN.HOSP.TC ---
Addendum entered and electronically signed by Mary Beth Caba MD 09/09/23 14:35:
total DC time 35 min
Original Note:
Today's Communication/Plan
-
see A/P
Assessment / Plan
Assessment / Plan
A/P:
# Non-traumatic Rhabdomyolysis - RESOLVED
There is NO crush injury involved, hence would be considered non-traumatic rhabdomyolysis
CPK 1340 to 135 with IVF.
# Mechanical fall may be related to supraventricular tachycardia vs physical deconditioning
CT head No acute intracranial abnormality
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
XR Right knee no acute fx/dislocation.
Echo stable from previous
PT recc SNF
# Dysphagia has been ruled out with SPL and VSE eval
Cont solid and thin liquid
# Supraventricular tachycardia on September 07, 2023 with spontaneous termination into sinus tach
Echo from 09/05/2023 showed LVEF 60%. Moderate LVH. Mild MR; Normal PA pressure
Started Metoprolol 25 mg BID
Added Amlodipine 5 mg for better BP control
Off [employer]PA[employer]PECTOR Losartan due to pt receiving Bactrim currently for UTI (hyperkalemia S/E)
Cardiology signed off
# Constipation, resolved
Cont bowel regimen, Senokot-S 1 tablet BID, Miralax 17 grams PO daily, Dulcolax suppository
# UTI with Klebsiella aerogenes
# Resolved Leukocytosis
s/p Ceftriaxone 3 days, then switched to Bactrim based on sensitivities - continue Bactrim for now
# Hypokalemia, Resolved
# Resolved transaminitis
# HTN
Started Metoprolol 25 mg BID and off Amlodipine and Losartan as stated above
Added Amlodipine 5 mg for better BP control
# Hypothyroidism
Continue home synthroid
# Dementia/Anxiety/Depression/Chronic Pain with opiate dependence
# Behavioral disturbance
Pt is awake, not orientated
Continue home Wellbutrin, Seroquel, rivastigmine, fentanyl patch, and percocet.
[place]. Outpatient follow up with Pain management Dr. Wyatt
Pt has required Nonviolent bilateral wrist restraints ordered
# Underweight
Diet - Regular Diet
DVT PPx - Lovenox SQ
Code Status - DNR/DNI
Dispo: SNF
updated daughter on the phone
Anticipated Discharge: Within 24 hours
Subjective/Interval History
-
Date of Service: September 09, 2023
Objective Data
-
Labs:
Laboratory Results
09/09/23
06:37
WBC 7.1
Hgb 12.2
Hct 36.5 L
Plt Count 295
Sodium 136
Potassium 4.1
Chloride 104
Carbon Dioxide 32 H
BUN 19 H
Creatinine 0.9
Glucose 98
Calcium 10.0
Total Bilirubin 0.4
AST 26
ALT 30
Alkaline Phosphatase 72
Vital Signs:
Vital Signs
Temp Pulse Resp BP Pulse Ox
36.7 C 62 17 175/70 95
09/09/23 08:00 09/09/23 08:00 09/09/23 08:00 09/09/23 08:00 09/09/23 08:00
I&O
09/08/23 09/09/23 09/10/23
06:59 06:59 06:59
Intake Total 1050 / 1050 600 / 600
Balance 1050 / 1050 600 / 600
Review of Systems
-
Unable to obtain full review of systems at this time due to: Dementia
Physical Exam
-
General: Well Developed, No Apparent Distress, Comfortable and Appears Chronically Ill
HEENT: Normocephalic and Atraumatic
Respiratory: Clear to Auscultation and Non Labored Respirations; Negative Accessory Resp Muscle Use
Cardiac: Regular Rhythm and S1/S2
GI: Soft, Nontender and Nondistended
Neuro: Awake
Psych: Calm and Apparent Dementia
Data Reviewed
-
Labs: Labs Reviewed by me
--- NOTE | 2023-09-09 11:12 | CM ---
Addendum entered by RALEIGH Chapman 09/09/23 13:21:
Patient's daughter updated with time, 16:00. She was agreeable to transfer time.
Original Note:
Reviewed chart, spoke with attending who stated that patient is medically cleared for discharge. Placed a call to Manuela in admissions at: [facility], [facility], and [facility] who stated that there is availability at all three.
Placed a call to patient's daughter who answered and stated that she would select for patient to transfer to [facility], as this is the facility closest to her.
Placed a call back to Manuela in admissions at [facility] who confirmed acceptance for today.
# For report [phone]

[facility] registered nurse updated. Will update RN and complete medical necessity form and transfer sheet.
Plan: Case management will continue to follow and assist with discharge planning. [facility].
[2023-09-09 12:00] VITALS: BP 107/71
--- NOTE | 2023-09-09 14:01 | W.DCSUMMARY ---
Discharge Summary
Discharge Data
Date of Admission: 09/04/23
Date of Discharge: 09/09/23
-
Pending Results: No
Hospital Course
Principal Diagnosis:
Mechanical fall may be related to supraventricular tachycardia vs physical deconditioning. This was associated with nontraumatic rhabdomyolysis which has resolved.
Supraventricular tachycardia noted during hospital stay on September 07, 2023 with spontaneous termination into sinus tach
Urinary tract infection with Klebsiella aerogenes
Chronic Diagnoses:�
Essential hypertension
Hypothyroidism
Dementia/Anxiety/Depression/Chronic Pain with opiate dependence
Consultations:�
Cardiology
Procedures:�
None
Clinical course:�
This is a 88 year old female, with past medical history as stated above, who presented with mechanical fall.
Problem 1:
Mechanical fall may be related to supraventricular tachycardia versus physical deconditioning.
This was associated with non-traumatic rhabdomyolysis which resolved with IVF.
Her CT head showed no acute intracranial abnormality.
Her hip and right knee XR were negative for acute fracture.
She was discharged to SNF per PT recommendation.
Problem 2:
Supraventricular tachycardia noted during hospital stay on September 07, 2023 with spontaneous termination into sinus tach.
Her echo this admission on 09/05/2023 was unrevealing: LVEF 60%, Moderate LVH, Mild MR, Normal PA pressure.
She was started with Metoprolol 25 mg BID which she can continue going forward.
Problem 3:
UTI with Klebsiella aerogenes.
She initially received Ceftriaxone (for 3 days) and this was switched to Bactrim based on sensitivy. She can continue with Bactrim for 1 more day following discharge.
Problem 4:
Essential hypertension.
In additional to the metoprolol 25 mg BID that was started, Amlodipine 5 mg was also added for better BP control.
Her prior to admission losartan was held as she was receiving Bactrim (side effect of hyperkalemia).
Further medication adjustment for blood pressure can be done outpatient by her PCP.
As for the rest of her medical problems, they were stable during her hospital stay.
Discharge Plan
-
Patient Disposition: Halfway/SNF
Discharge Diagnosis/Procedures: Mechanical fall with rhabdomyolysis may be related to supraventricular tachycardia vs physical deconditioning; UTI with Klebsiella aerogenes
Condition: Fair
Diet: As tolerated
Activity: As tolerated
Driving Restrictions: No driving
Activity Restrictions/Additional Instructions:
Continue to monitor your BP with your PCP outpatient.
Referrals:
UNKNOWN - PT NOT,[facility] [Family Provider] - in less than 1 week
Additional Discharge Medication Instructions: Continue Bactrim for 1 more day then stop.
Hold Losartan while on Bactrim.
Amlodipine and Toprol were added for better BP control. Adjust dose for better BP control outpatient.
Prescriptions:
New
sulfamethoxazole-trimethoprim 800-160 mg Tablet
1 tab PO BID 1 Days Qty: 2 0RF
amlodipine 5 mg Tablet
5 mg PO DAILY Qty: 30 0RF
metoprolol succinate 25 mg Tablet Extended Release 24 Hr
25 mg PO BID Qty: 60 0RF
Continued
atorvastatin 10 MG tablet
10 mg PO HS
calcium carbonate-vitamin D3 [Calcium 600 + D(3)] 1 EACH tablet
1 ea PO HS
cholecalciferol (vitamin D3) 2,000 UNITS tablet
2,000 unit PO DAILY
levothyroxine 50 MCG tablet
50 mcg PO DAILY AT 0700
rivastigmine tartrate 1.5 MG capsule
1.5 mg PO BID
memantine 10 MG tablet
10 mg PO BID
quetiapine 25 mg tablet
25 mg PO HS
acetaminophen 500 mg Tablet
500 mg PO TID
docusate sodium 100 mg Capsule
300 mg PO HS
bupropion HCl 150 mg tablet extended release 24 hr
150 mg PO DAILY
melatonin 10 mg Tablet
10 mg PO HS
oxycodone-acetaminophen 10-325 mg tablet
1 tab PO Q6 Qty: 3 0RF
fentanyl 25 MCG patch 72 hour
25 mcg transdermal Q48H Qty: 1 0RF
Held
losartan 50 MG tablet
50 mg PO DAILY
Hold Instructions: Resume on 09/11/23. resume when Bactrim has completed
Discharge Orders:
Discharge Patient (As Directed); Ordered 09/09/23
Ordered By: Mary Beth Caba
Discharge Date and Time
Print Language: YEMENI
[2023-09-09 15:53] VITALS: BP 152/69
== END 2023-09-09 16:47 | DRG 558 ==
LOC: 3 WEST ACU 07:48
PROVIDERS: Hospitalist; Physician Assistant; Registered Nurse; ADMITTING PHYSICIAN Internal Medicine; ATTENDING PHYSICIAN Internal Medicine; CONSULT PHYSICIAN Internal Medicine Cardiovascular Disease; EMERGENCY PHYSICIAN Emergency Medicine
DX: M62.82 Rhabdomyolysis (principal); F02.818 Dementia in other diseases classified elsewhere, unspecified severity, with other behavioral disturbance; F02.83 Dementia in other diseases classified elsewhere, unspecified severity, with mood disturbance; F02.811 Dementia in other diseases classified elsewhere, unspecified severity, with agitation; F02.84 Dementia in other diseases classified elsewhere, unspecified severity, with anxiety; Z68.1 Body mass index [BMI] 19.9 or less, adult; I47.19 Other supraventricular tachycardia; N39.0 Urinary tract infection, site not specified; Z66 Do not resuscitate; Z87.891 Personal history of nicotine dependence; I10 Essential (primary) hypertension; E78.00 Pure hypercholesterolemia, unspecified; E03.9 Hypothyroidism, unspecified; F51.04 Psychophysiologic insomnia; G30.9 Alzheimer's disease, unspecified; E87.6 Hypokalemia; R63.6 Underweight; K59.00 Constipation, unspecified; W18.30XA Fall on same level, unspecified, initial encounter
CPT/HCPCS: 70450; 71045; 71046; 73502; 73564; 74019; 74230; 80053; 81003; 81015; 82248; 82550; 82553; 83605; 83735; 83880; 84484; 85025; 85027; 87040; 87077; 87086; 87186; 92526; 92610; 92611; 93005; 93306; 97116; 97167; 97530; 97535; 99285